=== PATIENT | male | born 1970 | race Caucasian/White ===

== ENCOUNTER 2017-03-21 09:05 | Emergency (ER) | payer MEDICAID ==
[~2017-03-21] VITALS: Ht 182.9 cm; Wt 120.0 kg
[2017-03-21 09:06] VITALS: BP 157/86; PULSE 86; RESP 14; TEMP 98.5; O2SAT 99
--- NOTE | 2017-03-21 09:24 | PD ---
HPI Chief Complaint: Back/ Neck Pain or Injury Time Seen by Provider: 09:23 Travel History International Travel<30 days: No Contact w/Intl Traveler<30days: No Traveled to known affect area: No History of Present Illness HPI 46-year-old male presents to the emergency Department with complaint of low back pain, more right sided, 2 days. 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 He has history of chronic low back pain and low back surgery. Denies traumatic injury. Denies encopresis, incontinence, saddle anesthesias. Denies IV drug use, cancer. Denies fever, vomiting, abdominal pain, difficulty urinating or stooling. Denies difficulty ambulating. Denies change in paresthesias paresthesias to bilateral lower extremities; denies loss of sensation, decreased range motion, decreased strength bilateral lower extremities. Symptoms are moderate in severity. Has been taking Tylenol for symptom management. Pain is aggravated with trying to stand up straight. No known relieving factors. Allergies to tetracycline. Has no other medical complaints. No other modifying factors or associated signs and symptoms. PFSH Social History Tobacco Use: No Allergies-Medications (Allergen,Severity, Reaction): Coded Allergies: tetracycline (Verified Allergy, Unknown, 03/21/17) Reported Meds & Prescriptions Reported Meds & Active Scripts Active Medrol Dosepak (Methylprednisolone) 4 Mg Dspk 4 Mg PO DIRECTED Per Pharmacist direction Ibuprofen 800 Mg Tab 800 Mg PO Q6HR PRN Robaxin (Methocarbamol) 500 Mg Tab 500 Mg PO QID PRN Review of Systems Except as stated in HPI: all other systems reviewed are Neg Physical Exam Narrative GENERAL: Well-nourished, well-developed male patient, in no acute distress; afebrile, nontoxic-appearing SKIN: Warm and dry. HEAD: Atraumatic. Normocephalic. EYES: Pupils equal and round. No scleral icterus. No injection or drainage. ENT: Mucosa pink and moist. Airway patent. NECK: Trachea midline. CARDIOVASCULAR: Regular rate. RESPIRATORY: No accessory muscle use. GASTROINTESTINAL: Rounded. MUSCULOSKELETAL: Bilateral lower extremities supple and non-tense with 2+ pedal pulses and sensory intact; with full range of motion and 5/5 strength. 2 + DTRs bilaterally. Active dorsiflexion and extension of bilateral feet. Right straight leg raise is positive for low back pain. Ambulatory in room with guarded gait. Sitting up in bed at 90. No obvious deformities. No clubbing. No cyanosis. No edema. BACK: No midline point tenderness on palpation of the lumbar spine. Midline lumbar spine scar noted. Tenderness on palpation of right lumbar paraspinal area. No obvious deformities. NEUROLOGICAL: Awake and alert. Oriented 3. No obvious cranial nerve deficits. Motor grossly within normal limits. Normal speech. Moves all extremities. 5/5 strength to all extremities. Sensory intact. PSYCHIATRIC: Appropriate mood and affect; insight and judgment normal. Data Data Last Documented VS Vital Signs Date Time Temp Pulse Resp B/P (MAP) Pulse Ox O2 Delivery O2 Flow Rate FiO2 03/21/17 09:06 98.5 86 14 157/86 (109) 99 Orders Orders Ketorolac Inj (Toradol Inj) (03/21/17 09:30) Orphenadrine Inj (Norflex Inj) (03/21/17 09:30) Ed Discharge Order (03/21/17 09:24) [facility] Medical Decision Making Medical Screen Exam Complete: Yes Emergency Medical Condition: Yes Medical Record Reviewed: Yes Differential Diagnosis Acute exacerbation of chronic low back pain, low back strain, sciatica Narrative Course 46-year-old male with history of chronic low back pain, physical examination consistent with acute exacerbation of chronic low back pain and low back strain. Has been doing heavy lifting. Denies encopresis, incontinence, saddle anesthesias. Denies IV drug use or cancer. Neuro exam unremarkable. Toradol and Norflex administered in the ER. Ibuprofen, Robaxin and Medrol Dosepak prescribed for home. Patient requesting Medrol Dosepak. Instructed patient to follow up with primary care provider. Patient verbalizes understanding and agreement with treatment plan. Patient is medically cleared and stable for discharge. Discussed reasons to return to the emergency department. Patient agrees with treatment plan. The patients vital signs are stable and the patient is stable for outpatient follow-up and treatment. Patient discharged home, stable and in no acute distress. Diagnosis Primary Impression: Acute exacerbation of chronic low back pain Additional Impression: Low back strain Qualified Codes: S39.012A - Strain of muscle, fascia and tendon of lower back , initial encounter Referrals: Primary Care Physician Patient Instructions: Acute Low Back Pain (ED), General Instructions, Low Back Strain (ED) Additional Instructions: Tylenol or ibuprofen as directed and as needed for pain Robaxin as prescribed and as needed for muscle spasms Heating pad and/or ice to affected area to reduce pain Avoid aggravating activities; increase activity as tolerated Follow-up with primary care provider Return to emergency department immediately with worsening of symptoms Med/Other Pt SpecificInfo: Prescription(s) given Scripts Methylprednisolone Dosepak (Medrol Dosepak) 4 Mg Dspk 4 MG PO DIRECTED, #1 DSPK 0 Refills Per Pharmacist direction Prov: Marjorie Cobos 03/21/17 Ibuprofen (Ibuprofen) 800 Mg Tab 800 MG PO Q6HR Y for PAIN, #40 TAB 0 Refills Prov: Marjorie Cobos 03/21/17 Methocarbamol (Robaxin) 500 Mg Tab 500 MG PO QID Y for MUSCLE SPASM, #30 TAB 0 Refills Prov: Marjorie Cobos 03/21/17 Disposition: 01 DISCHARGE HOME Condition: Stable Marjorie Cobos Mar 21, 2017 09:24
[2017-03-21] MEDS ORDERED: ROBA500T PO (09:28)
[2017-03-21] MEDS ORDERED: MEDR4PAK PO (09:28)
[2017-03-21] MEDS ORDERED: IBUP800T23 PO (09:28)
[2017-03-21] MEDS ORDERED: ORPHENADRINE INJ 60 MG/2 ML AMP IM ONE (09:30)
[2017-03-21] MEDS ORDERED: KETOROLAC TROMETHAMINE 60 MG/2 ML (IM) VIAL IM ONE (09:30)
== END 2017-03-21 10:02 | disposition home or self-care (01) ==
LOC: NEPK 09:05
DX: S39.012A Strain of muscle, fascia and tendon of lower back, initial encounter (principal); G89.29 Other chronic pain; X58.XXXA Exposure to other specified factors, initial encounter
CPT/HCPCS: 96372; 99284; J1885; J2360